=== PATIENT | female | born 1975 | race Caucasian/White ===

== ENCOUNTER 2022-02-12 10:36 | Observation (INO) ==
[2022-02-12 11:13] LABS: Basophils # 0.1 K/mcL (0.0-0.2); Basophils % 0.9 %; Eosinophils # 0.6 K/mcL (0.0-0.6); Eosinophils % 5.3 %; Hematocrit 28.5 % (35.3-44.9); Hemoglobin 8.9 g/dL (11.5-15.4); Immature Granulocytes % 0.4 % (0-4); Lymphocytes # 2.2 K/mcL (0.6-4.6); Mean Corpuscular HGB Conc 31.2 g/dL (31.6-35.5); Mean Corpuscular Hemoglobin 28.2 pg (28.0-33.3); Mean Corpuscular Volume 90.2 fL (83.0-100.0); Mean Platelet Volume 10.6 fL (9.4-12.4); Monocytes # 0.5 K/mcL (0.0-1.3); Monocytes % 4.6 %; Neutrophils # 7.7 K/mcL (1.6-8.9); Platelet Count 333 K/mcL (140-400); Red Blood Count 3.16 M/mcL (3.82-4.97); Red Cell Distribution Width 17.1 % (11.5-14.5); Segmented Neutrophils % 68.8 %; White Blood Count 11.2 K/mcL (4.3-11.1)
[2022-02-12 11:24] LABS: INR 1.2; Prothrombin Time 13.5 Seconds (9.4-12.1)
[2022-02-12] MEDS ORDERED: *HR* HYDROmorphone (PF) 1 MG/ML SYRINGE IVP ONE (12:08)
[2022-02-12] MEDS ORDERED: *HR* HYDROmorphone (PF) 1 MG/ML SYRINGE IVP STA (13:49)
[2022-02-12] MEDS ORDERED: Iopamidol - 370 500 ML MLS IVP ONE (14:26)
[2022-02-12] MEDS ORDERED: Melatonin 3 MG TABLET PO PRN (14:28)
[2022-02-12] MEDS: niCARdipine 20 MG/200 ML MLS IVC SCH ×5 (14:28→21:46)
[2022-02-12] MEDS ORDERED: Naloxone 0.4 MG/ML INJ IVP PRN (14:28)
[2022-02-12] MEDS ORDERED: Ondansetron ODT 4 MG TAB.RAPDIS SL PRN (14:28)
[2022-02-12] MEDS ORDERED: Acetaminophen 325 MG TABLET PO PRN (14:30)
[2022-02-12] MEDS: *HR* HYDROcodone/Acet 5/325 mg TABLET PO PRN (15:03)
[2022-02-12] MEDS ORDERED: Dextrose Gel 15 GM/37.5 ML TUBE PO PRN ×2 (15:24)
[2022-02-12] MEDS: *HR* HYDROmorphone (PF) 1 MG/ML SYRINGE IVP PRN ×2 (15:41→21:45)
[2022-02-12] MEDS: Insulin LISPRO 300 UNITS/3 ML VIAL SUBQ SCH (17:42)
[2022-02-12 18:12] LABS: Calcium 8.6 mg/dL (8.6-10.3); Magnesium 1.5 mg/dL (1.6-2.6); Phosphorous 3.8 mg/dL (2.7-4.5); Potassium 3.6 mEq/L (3.5-5.1)
[2022-02-12] MEDS: Gabapentin 300 MG CAPSULE PO SCH (21:15)
[2022-02-12] MEDS: QUEtiapine Fumarate 100 MG TABLET PO SCH (21:15)
[2022-02-13] MEDS: niCARdipine 20 MG/200 ML MLS IVC SCH ×3 (01:09→12:21)
[2022-02-13] MEDS: *HR* HYDROcodone/Acet 5/325 mg TABLET PO PRN ×4 (01:09→21:50)
[2022-02-13 01:50] LABS: Basophils # 0.1 K/mcL (0.0-0.2); Basophils % 0.8 %; Eosinophils # 0.9 K/mcL (0.0-0.6); Eosinophils % 8.9 %; Hemoglobin 7.9 g/dL (11.5-15.4); Immature Granulocytes % 0.3 % (0-4); Lymphocytes # 2.4 K/mcL (0.6-4.6); Lymphocytes % 22.7 %; Mean Corpuscular HGB Conc 31.6 g/dL (31.6-35.5); Mean Corpuscular Hemoglobin 28.1 pg (28.0-33.3); Mean Platelet Volume 10.7 fL (9.4-12.4); Monocytes # 0.6 K/mcL (0.0-1.3); Monocytes % 5.6 %; Neutrophils # 6.6 K/mcL (1.6-8.9); Platelet Count 313 K/mcL (140-400); Red Blood Count 2.81 M/mcL (3.82-4.97); Red Cell Distribution Width 17.1 % (11.5-14.5); Segmented Neutrophils % 61.7 %; White Blood Count 10.6 K/mcL (4.3-11.1)
[2022-02-13 02:13] LABS: Calcium 7.8 mg/dL (8.6-10.3); Potassium 3.8 mEq/L (3.5-5.1)
[2022-02-13 02:20] LABS: Thyroid Stimulating Hormone 7.233 mcIU/mL (0.340-5.600)
[2022-02-13] MEDS: *HR* HYDROmorphone (PF) 1 MG/ML SYRINGE IVP PRN ×3 (05:34→18:00)
[2022-02-13] MEDS: Gabapentin 300 MG CAPSULE PO SCH ×3 (07:35→21:50)
[2022-02-13] MEDS ORDERED: tiZANidine 4 MG TABLET PO PRN (08:05)
[2022-02-13] MEDS: cloNIDine HCL 0.1 MG TABLET PO SCH (08:48)
[2022-02-13] MEDS: Insulin LISPRO 300 UNITS/3 ML VIAL SUBQ SCH ×3 (08:49→16:49)
[2022-02-13] MEDS: *HR* Amiodarone 200 MG TABLET PO SCH (08:49)
[2022-02-13] MEDS: lisinopriL 20 MG TABLET PO SCH (08:49)
[2022-02-13] MEDS: rOPINIRole 1 MG TABLET PO SCH (08:49)
[2022-02-13] MEDS ORDERED: *HR* Midazolam HCl 2 MG/2 ML VIAL ONE (09:31)
[2022-02-13] MEDS ORDERED: *HR* FentaNYL (PF) 100 MCG/2 ML VIAL ONE (09:31)
[2022-02-13] MEDS ORDERED: Calcium Chloride 1,000 MG in 0.9 % Sodium Chloride 100 ML IVPB ONE (09:40)
[2022-02-13] MEDS ORDERED: Calcium Gluconate 1gm/50mL 1 GM/50 ML BAG IVPB ONE (09:49)
[2022-02-13] MEDS: Cholecalciferol (D-3) 1,000 UNIT (25MCG) TABLET PO SCH (10:42)
[2022-02-13 13:53] LABS: % Iron Saturation 13 % (15-50); Iron 28 mcg/dL (50-170); Transferrin 157 mg/dL (203-362)
[2022-02-13 14:11] LABS: Ferritin 160 ng/mL (10-120)
[2022-02-13] MEDS ORDERED: hydrALAZINE 10 MG TABLET PO SCH (18:00)
[2022-02-13 18:23] LABS: Bacteria,Urine Few per hpf (None-Few); Bilirubin,Urine Negative (Negative); Blood,Urine Small (Negative); Clarity,Urine Clear (Clear); Color,Urine Light-Yellow (Yellow); Glucose,Urine (UA) 100 mg/dL (Normal); Ketones,Urine Negative (Negative); Leukocyte Esterase,Urine Negative (Negative); Mucus,Urine Few per lpf (None-Few); Nitrite,Urine Negative (Negative); Protein,Urine 200 mg/dL (Neg-Trace); Specific Gravity,Urine 1.017 (1.010-1.025); Squamous Epithelial Cell,Urine Few per hpf (None-Few); Urobilinogen,Urine Normal (Normal); WBC,Urine 0-3 per hpf (0-3)
[2022-02-13] MEDS: QUEtiapine Fumarate 100 MG TABLET PO SCH (21:50)
[2022-02-14] MEDS: *HR* HYDROmorphone (PF) 1 MG/ML SYRINGE IVP PRN ×2 (00:24→06:12)
[2022-02-14] MEDS: hydrALAZINE 25 MG TABLET PO SCH ×2 (00:34→07:47)
[2022-02-14 04:52] LABS: Basophils # 0.1 K/mcL (0.0-0.2); Eosinophils # 0.9 K/mcL (0.0-0.6); Eosinophils % 9.1 %; Hematocrit 27.2 % (35.3-44.9); Hemoglobin 8.5 g/dL (11.5-15.4); Immature Granulocytes % 0.2 % (0-4); Lymphocytes # 2.4 K/mcL (0.6-4.6); Lymphocytes % 23.8 %; Mean Corpuscular HGB Conc 31.3 g/dL (31.6-35.5); Mean Corpuscular Hemoglobin 28.1 pg (28.0-33.3); Mean Corpuscular Volume 90.1 fL (83.0-100.0); Monocytes # 0.5 K/mcL (0.0-1.3); Monocytes % 5.1 %; Neutrophils # 6.2 K/mcL (1.6-8.9); Platelet Count 328 K/mcL (140-400); Red Blood Count 3.02 M/mcL (3.82-4.97); Red Cell Distribution Width 17.2 % (11.5-14.5); Segmented Neutrophils % 60.8 %; White Blood Count 10.2 K/mcL (4.3-11.1)
[2022-02-14 05:10] LABS: Calcium 8.5 mg/dL (8.6-10.3); Magnesium 1.9 mg/dL (1.6-2.6); Potassium 4.4 mEq/L (3.5-5.1)
[2022-02-14] MEDS: Cholecalciferol (D-3) 1,000 UNIT (25MCG) TABLET PO SCH (07:46)
[2022-02-14] MEDS: Gabapentin 300 MG CAPSULE PO SCH (07:47)
[2022-02-14] MEDS: rOPINIRole 1 MG TABLET PO SCH (07:47)
[2022-02-14] MEDS: *HR* HYDROcodone/Acet 5/325 mg TABLET PO PRN (07:47)
[2022-02-14] MEDS: *HR* Amiodarone 200 MG TABLET PO SCH (07:47)
[2022-02-14] MEDS: lisinopriL 20 MG TABLET PO SCH (07:48)
[2022-02-14] MEDS: cloNIDine HCL 0.1 MG TABLET PO SCH (07:48)
[2022-02-14] MEDS: Insulin LISPRO 300 UNITS/3 ML VIAL SUBQ SCH ×2 (07:49→11:38)
[2022-02-14] MEDS ORDERED: Metoprolol XL (24 HR) Succ 25 MG TAB.ER.24H PO SCH (09:00)
[2022-02-14] MEDS ORDERED: *HR* OxyCODONE/APAP 10/325 TABLET PO PRN (09:24)
[2022-02-14 10:26] VITALS: BP 169/71; PULSE 76; TEMP 97.8; O2SAT 96
[2022-02-14] MEDS ORDERED: Cyanocobalamin (B-12) 1,000 MCG/ML VIAL IM STA (11:32)
[2022-02-14 12:10] LABS: Triiodothyronine (T3) Free 1.92 pg/mL (2.50-3.90)
[2022-02-16 09:54] LABS: Estimated Average Glucose 163 mg/dL; Hemoglobin A1C 7.3 % (<=5.6)
== END 2022-02-14 14:11 | disposition home or self-care (01) ==
LOC: RAD 10:36 → 2NENU 10:36 → SUATTDRO 14:20 → 2NNU 14:58 → 3BNU 02-13 10:11
PROVIDERS: ADMIT Student in an Organized Health Care Education/Training Program; ATTEND Internal Medicine